=== PATIENT | female | born 1985 | race African-American/Black ===

== ENCOUNTER 2022-04-10 19:15 | Outpatient (CLI) | payer SELFPAY | END 2022-04-10 19:16 | disposition home or self-care (01) | LOC: AMB 05-13 18:58 | PROVIDERS: Visit Provider Family Medicine | DX: S19.9XXA Unspecified injury of neck, initial encounter (principal); V49.40XA Driver injured in collision with unspecified motor vehicles in traffic accident, initial encounter; Y92.410 Unspecified street and highway as the place of occurrence of the external cause | CPT/HCPCS: A0425; A0427 ==